=== PATIENT | female | born 1970 | race Caucasian/White ===

== ENCOUNTER → 2018-09-07 16:03 | Outpatient (CLI) | payer OTHER, SELFPAY ==
[2018-09-07 18:40] LABS: Anion Gap 6 (5-15); BUN 14 mg/dL (7-18); BUN/Creat Ratio 17.9 RATIO (10-20); Calcium,Total 8.6 mg/dL (8.5-10.1); Chloride 103 mmol/L (98-107); Creatinine, Serum 0.78 mg/dL (0.55-1.02); EST Glomerular Filtration Rate 84 mL/min (>60); Est Glom Filt Rate - Afr Amer 101 mL/min (>60); Glucose 95 mg/dL (74-106); Potassium 2.7 mmol/L (3.5-5.1); Sodium Level 143 mmol/L (136-145)
== END ==
PROVIDERS: Family Provider Family Medicine; PCP Family Medicine; Visit Provider Family Medicine
DX: Z00.00 Encounter for general adult medical examination without abnormal findings (principal)
CPT/HCPCS: 36415; 80048

== ENCOUNTER → 2018-09-09 15:07 | Outpatient (CLI) | payer OTHER, SELFPAY ==
[2018-09-09 18:30] LABS: Anion Gap 6 (5-15); BUN 19 mg/dL (7-18); BUN/Creat Ratio 22.8 RATIO (10-20); Chloride 102 mmol/L (98-107); Creatinine, Serum 0.84 mg/dL (0.55-1.02); EST Glomerular Filtration Rate 77 mL/min (>60); Est Glom Filt Rate - Afr Amer 94 mL/min (>60); Glucose 79 mg/dL (74-106); Potassium 3.1 mmol/L (3.5-5.1); Sodium Level 141 mmol/L (136-145)
== END ==
PROVIDERS: Family Medicine; Family Provider Family Medicine; PCP Family Medicine; Visit Provider Family Medicine
DX: E87.6 Hypokalemia (principal)
CPT/HCPCS: 36415; 80048

== ENCOUNTER → 2018-10-05 16:38 | Outpatient (CLI) | payer OTHER, SELFPAY ==
[2018-10-05 18:56] LABS: Anion Gap 9 (5-15); BUN 16 mg/dL (7-18); BUN/Creat Ratio 14.5 RATIO (10-20); Calcium,Total 8.9 mg/dL (8.5-10.1); Chloride 102 mmol/L (98-107); EST Glomerular Filtration Rate 56 mL/min (>60); Est Glom Filt Rate - Afr Amer 68 mL/min (>60); Glucose 95 mg/dL (74-106); Sodium Level 143 mmol/L (136-145)
--- OUTSIDE RECORDS SUMMARY | 2018-11-21 23:40 | XMS RPT_ITS ---
:1970 Author Organization [place] Support Name Relationship Address Phone JUAN CARLOS, DEN Unavailable [address] + [place] [address] NORSCH Unavailable [address] + [address] [place] [address] NAGI, BJ Unavailable [address] + [place] [address] JUAN CARLOS, DEN Unavailable [address] + [place] [address] NORSCH Unavailable [address] + [address] [place] [address] NAGI, BJ Unavailable [address] + [place] [address] DANIELEELIZABETH, DEN Unavailable [address] + [place] [address] NORSCH Unavailable [address] + [address] [place] [address] NAGI, BJ Unavailable [address] + [place] [address] JUAN CARLOS, DEN Unavailable [address] + [place] [address] NORSCH Unavailable [address] + [address] [place] [address] NAGI, BJ Unavailable [address] + [place] [address] JUAN CARLOS, DEN Unavailable [address] + [place] [address] NORSCH Unavailable [address] + [address] [place] [address] NAGI, BJ Unavailable [address] + [place] [address] DEN PECK Unavailable [address] + [place] [address] NORSCH Unavailable [address] + [address] [place] [address] BJ LAZAR Unavailable [address] + [place] [address] Care Team Providers Name Role Phone Diogo Heard Attending Unavailable Diogo Heard Primary Care Unavailable Diogo Heard Attending Unavailable Félix, [facility] [place] [facility] Unavailable Diogo Heard Attending Unavailable Félix, [facility] [place] Primary [facility] Unavailable Diogo Heard Attending Unavailable Félix, Diogo Primary Care Unavailable Diogo Heard Attending Unavailable Félix, [facility] Unavailable Kenzie Valentine Attending Unavailable Mariopryor, [facility] Unavailable PROBLEMS PROBLEMS No Problem Records FoundPROCEDURES PROCEDURES No Procedure Records FoundRESULTS RESULTS BASIC METABOLIC Collected: 10/29/2018 Status: F Source: G[place]ZALES PROFILE (BMP) 3:07 PM [facility] REPOSITORY TYPE CODE TESTS RESULT OUT OF RANGE REFERENCE UNITS LAB L501.0100 74-106 mg/dL Normal GLU 83 Result Comment: Please note revised GLUCOSE reference range effective 2017. LAB L501.1000 7-18 mg/dL Normal BUN 10 LAB L501.1100 0.55-1.02 mg/dL Normal CREAT,SERUM 0.76 Result Comment: The validity of the calculated GFR AND GFRAA in patients over 70 years has not been determined. Clinical correlation is essential. LAB L501.1110 >60 mL/min Normal EST GFR 87 Result Comment: Non- GFR Calc LAB L501.1115 >60 mL/min Normal EST GFR - AA 105 Result Comment: GFR Calc LAB L501.1300 10-20 RATIO Normal BUN/CRE 13.2 LAB L501.2200 8.5-10.1 mg/dL CA Normal 9.5 LAB L501.5300 136-145 mmol/L NA Normal 142 LAB L501.5600 3.5-5.1 mmol/L K Normal 3.9 LAB L501.5900 98-107 mmol/L CL Normal 104 LAB L501.6100 21.0-32.0 mmol/L Normal CO2 30.0 LAB L501.6200 5-15 Normal GAP 8 Performed By: #### L500.2500 #### [facility] [address] [place], [place], [address] BASIC METABOLIC Collected: 10/20/2018 Status: F Source: [place] PROFILE ([facility]) 2:17 PM [facility] REPOSITORY TYPE CODE TESTS RESULT OUT OF RANGE REFERENCE UNITS LAB L501.0100 74-106 mg/dL Normal GLU 89 Result Comment: Please note revised GLUCOSE reference range effective 2017. LAB L501.1000 7-18 mg/dL Normal BUN 16 LAB L501.1100 0.55-1.02 mg/dL Normal CREAT,SERUM 0.75 Result Comment: The validity of the calculated GFR AND GFRAA in patients over 70 years has not been determined. Clinical correlation is essential. LAB L501.1110 >60 mL/min Normal EST GFR 88 Result Comment: Non- GFR Calc LAB L501.1115 >60 mL/min Normal EST GFR - AA 106 Result Comment: GFR Calc LAB L501.1300 10-20 RATIO High BUN/CRE 21.3 LAB L501.2200 8.5-10.1 mg/dL CA Normal 9.5 LAB L501.5300 136-145 mmol/L NA Normal 144 LAB L501.5600 3.5-5.1 mmol/L Low K 2.8 LAB L501.5900 98-107 mmol/L CL Normal 102 LAB L501.6100 21.0-32.0 mmol/L High CO2 33.0 LAB L501.6200 5-15 Normal GAP 9 Performed By: #### L500.2500 #### [facility] [address] [place], [place], [address] BASIC METABOLIC Collected: 10/11/2018 Status: F Source: [place] PROFILE ([facility]) 2:55 PM [facility] REPOSITORY TYPE CODE TESTS RESULT OUT OF RANGE REFERENCE UNITS LAB L501.0100 74-106 mg/dL Normal GLU 87 Result Comment: Please note revised GLUCOSE reference range effective 2017. LAB L501.1000 7-18 mg/dL Normal BUN 13 LAB L501.1100 0.55-1.02 mg/dL Normal CREAT,SERUM 0.77 Result Comment: The validity of the calculated GFR AND GFRAA in patients over 70 years has not been determined. Clinical correlation is essential. LAB L501.1110 >60 mL/min Normal EST GFR 85 Result Comment: Non- GFR Calc LAB L501.1115 >60 mL/min Normal EST GFR - AA 103 Result Comment: GFR Calc LAB L501.1300 10-20 RATIO Normal BUN/CRE 16.9 LAB L501.2200 8.5-10.1 mg/dL CA Normal 8.9 LAB L501.5300 136-145 mmol/L NA Normal 140 LAB L501.5600 3.5-5.1 mmol/L Low K 3.3 LAB L501.5900 98-107 mmol/L CL Normal 104 LAB L501.6100 21.0-32.0 mmol/L Normal CO2 30.0 LAB L501.6200 5-15 Normal GAP 6 Performed By: #### L500.2500 #### [facility] [address] [place], [place] [address]n[place]. [place], [address] BASIC METABOLIC Collected: 10/05/2018 Status: F Source: [place] PROFILE (BMP) 4:39 PM [facility] REPOSITORY TYPE CODE TESTS RESULT OUT OF RANGE REFERENCE UNITS LAB L501.0100 74-106 mg/dL Normal GLU 95 Result Comment: Please note revised GLUCOSE reference range effective 2017. LAB L501.1000 7-18 mg/dL Normal BUN 16 LAB L501.1100 0.55-1.02 mg/dL High CREAT,SERUM 1.10 Result Comment: The validity of the calculated GFR AND GFRAA in patients over 70 years has not been determined. Clinical correlation is essential. LAB L501.1110 >60 mL/min Low EST GFR 56 Result Comment: Non- GFR Calc LAB L501.1115 >60 mL/min Normal EST GFR - AA 68 Result Comment: GFR Calc LAB L501.1300 10-20 RATIO Normal BUN/CRE 14.5 LAB L501.2200 8.5-10.1 mg/dL CA Normal 8.9 LAB L501.5300 136-145 mmol/L NA Normal 143 LAB L501.5600 3.5-5.1 mmol/L Low K 3.0 LAB L501.5900 98-107 mmol/L CL Normal 102 LAB L501.6100 21.0-32.0 mmol/L Normal CO2 32.0 LAB L501.6200 5-15 Normal GAP 9 Performed By: #### L500.2500 #### [facility] [address] [place], [place], [address] BASIC METABOLIC Collected: 09/09/2018 Status: F Source: G[place]ZALES PROFILE ([facility]) 3:08 PM [facility] REPOSITORY TYPE CODE TESTS RESULT OUT OF RANGE REFERENCE UNITS LAB L501.0100 74-106 mg/dL Normal GLU 79 Result Comment: Please note revised GLUCOSE reference range effective 2017. LAB L501.1000 7-18 mg/dL High BUN 19 LAB L501.1100 0.55-1.02 mg/dL Normal CREAT,SERUM 0.84 Result Comment: The validity of the calculated GFR AND GFRAA in patients over 70 years has not been determined. Clinical correlation is essential. LAB L501.1110 >60 mL/min Normal EST GFR 77 Result Comment: Non- GFR Calc LAB L501.1115 >60 mL/min Normal EST GFR - AA 94 Result Comment: GFR Calc LAB L501.1300 10-20 RATIO High BUN/CRE 22.8 LAB L501.2200 8.5-10.1 mg/dL CA Normal 9.0 LAB L501.5300 136-145 mmol/L NA Normal 141 LAB L501.5600 3.5-5.1 mmol/L Low K 3.1 LAB L501.5900 98-107 mmol/L CL Normal 102 LAB L501.6100 21.0-32.0 mmol/L High CO2 33.0 LAB L501.6200 5-15 Normal GAP 6 Performed By: #### L500.2500 #### [facility] [address] [place], [place], [address] BASIC METABOLIC Collected: 09/07/2018 Status: F Source: GONZALES PROFILE ([facility]) 4:04 PM [facility] REPOSITORY TYPE CODE TESTS RESULT OUT OF RANGE REFERENCE UNITS LAB L501.0100 74-106 mg/dL Normal GLU 95 Result Comment: Please note revised GLUCOSE reference range effective 2017. LAB L501.1000 7-18 mg/dL Normal BUN 14 LAB L501.1100 0.55-1.02 mg/dL Normal CREAT,SERUM 0.78 Result Comment: The validity of the calculated GFR AND GFRAA in patients over 70 years has not been determined. Clinical correlation is essential. LAB L501.1110 >60 mL/min Normal EST GFR 84 Result Comment: Non- GFR Calc LAB L501.1115 >60 mL/min Normal EST GFR - AA 101 Result Comment: GFR Calc LAB L501.1300 10-20 RATIO Normal BUN/CRE 17.9 LAB L501.2200 8.5-10.1 mg/dL CA Normal 8.6 LAB L501.5300 136-145 mmol/L NA Normal 143 LAB L501.5600 3.5-5.1 mmol/L Low K alert 2.7 Result Comment: Critical Result(s) Called at: 18:41:15 09/07/2018 by: FAN QUINTERO TO DR. INTERIANO LAB L501.5900 98-107 mmol/L Normal CL 103 LAB L501.6100 21.0-32.0 mmol/L High CO2 34.0 LAB L501.6200 5-15 Normal 6 GAP Performed By: #### L500.2500 #### [facility] [address] [place], [place] [address] [place], [place], [address] ALLERGIES ALLERGIES No Allergies Records FoundENCOUNTERS ENCOUNTERS ADMIT/DISCHARGE ACCOUNT ADMITTING ENCOUNTER LOCATION SOURCE NUMBER CLASS 10/29/2018 [id number] [facility] ing:VenueAgentPLAB Repository 10/20/2018 [id number] [facility] [place] [facility] ing:MFPLAB Repository 10/11/2018 [id number] [facility] ing:MFPLAB Repository 10/05/2018 [id number] [facility] ing:MFPLAB Repository 09/09/2018 [id number] Ambulatory [place] 1 [facility] ing:MFPLAB Repository 09/07/2018 [id number] [facility] 2 [facility] ing:MFPLAB Repository PAYERS PAYERS ENCOUNTER GUARANTOR PAYER SUBSCRIBER SOURCE 10/29/2018 Kadeem Primary Bj Peck-[id number] Insurance:MEDICAL WilfongDOB: [address] [place] Number: Repository [id number]: 330 [id number] [phone] (HP) Date:1307-01-11PF [address] [address]AU: 10/29/2018 Secondary NOT GIVENUNK [place] Insurance:SELF PAY [facility] Number: Effective Repository Date:2018-10-29 10/20/2018 Kadeem Primary Bj Peck-Pfbwukr335 Insurance:MEDICAL WilfongDOB: [address] 1953[place] Number: Repository [address]Hpu: 330 [id number] [phone] (HP) Date:4321-88-74ZH [address] [address]HU: 10/20/2018 Secondary NOT GIVENUNK [place] Insurance:SELF PAY [facility] Number: Effective Repository Date:2018-10-20 10/11/2018 Kadeem Primary Bj Peck-Hgfaitj083 Insurance:MEDICAL WilfongDOB: [address] 3847[facility] [place] Number: Repository [address]Bbb: 330 [id number] [phone] (HP) Date:5337-12-15PK [address] [address]SD: 10/11/2018 Secondary NOT GIVENUNK [place] Insurance:SELF PAY [facility] Number: Effective Repository Date:2018-10-11 10/05/2018 Kadeem Primary Bj Peck-[id number] Insurance:MEDICAL WilfongDOB: [address] 2841[facility] [place] Number: Repository [address]Azz: 330 [id number] [phone] (HP) Date:2332-78-95II [address] [address]IS: 10/05/2018 Secondary NOT GIVENUNK [place] Insurance:SELF PAY [facility] Number: Effective Repository Date:2018-10-05 09/09/2018 Kadeem [facility] Bj Peck-Cjisbfc204 Insurance:MEDICAL WilfongDOB: Community [address] [facility] 3189[place]89-[place] Number: Repository [id number]: [phone] [id number] [phone] (HP) Date:3280-97-48ZZ [address] [address]JC: 09/09/2018 Secondary NOT GIVENUNK [place] Insurance:SELF PAY [facility] Number: Effective Repository Date:2018-09-09 09/07/2018 [facility] Bj [address] [place] Danieleelizabeth-[id number] Insurance:MEDICAL WilfongDOB: Community [address] [facility] [id number] Number: Repository [id number]: [phone] [id number] [phone] (HP) Date:3664-06-78LL [address] [address]MN: 09/07/2018 Secondary NOT GIVENUNK [place] Insurance:SELF PAY [facility] Number: Effective Repository Date:2018-09-07
== END ==
PROVIDERS: Family Medicine; Family Provider Family Medicine; PCP Family Medicine; Visit Provider Family Medicine
DX: E87.6 Hypokalemia (principal)
CPT/HCPCS: 36415; 80048

== ENCOUNTER → 2018-10-11 14:53 | Outpatient (CLI) | payer OTHER, SELFPAY ==
[2018-10-11 18:08] LABS: Anion Gap 6 (5-15); BUN 13 mg/dL (7-18); BUN/Creat Ratio 16.9 RATIO (10-20); Calcium,Total 8.9 mg/dL (8.5-10.1); Chloride 104 mmol/L (98-107); Creatinine, Serum 0.77 mg/dL (0.55-1.02); EST Glomerular Filtration Rate 85 mL/min (>60); Est Glom Filt Rate - Afr Amer 103 mL/min (>60); Glucose 87 mg/dL (74-106); Potassium 3.3 mmol/L (3.5-5.1); Sodium Level 140 mmol/L (136-145)
--- OUTSIDE RECORDS SUMMARY | 2019-01-13 07:50 | XMS RPT_ITS ---
:1970 Author Organization [place] Support Name Relationship Address Phone JUAN CARLOS, DEN Unavailable [address] + [place] [address] NORSCH Unavailable [address] + [address] [place] [address] NAGI, BJ Unavailable [address] + [place] [address] JUAN CARLOS, DEN Unavailable [address] + [place] [address] NORSCH Unavailable [address] + [address] [place] [address] NAGI, BJ Unavailable [address] + [place] [address] DANIELEELIZABETH, DEN Unavailable [address] + [place] [address] NORSCH Unavailable [address] + [address] [place] [address] NAGI, BJ Unavailable [address] + [place] [address] JUAN CARLOS, DEN Unavailable [address] + [place] [address] NORSCH Unavailable [address] + [address] [place] [address] NAGI, BJ Unavailable [address] + [place] [address] JUAN CARLOS, DEN Unavailable [address] + [place] [address] NORSCH Unavailable [address] + [address] [place] [address] NAGI, BJ Unavailable [address] + [place] [address] DEN PECK Unavailable [address] + [place] [address] NORSCH Unavailable [address] + [address] [place] [address] BJ LAZAR Unavailable [address] + [place] [address] Care Team Providers Name Role Phone Kenzie Valentine Attending Unavailable Félix, Diogo Primary Care Unavailable Diogo Heard Attending Unavailable Félix, [facility] Unavailable Félix, Diogo Attending Unavailable F[facility]ix, [facility] Unavailable Ranstephen, Christanamaria Attending Unavailable Félix, [facility] Unavailable Ranstephen, Diogo Attending Unavailable Ranpetal, [facility] Unavailable Ranstephen, Christvalerianoer Attending Unavailable Ranpetal, Christopher Primary Care Unavailable PROBLEMS PROBLEMS No Problem Records FoundPROCEDURES PROCEDURES No Procedure Records FoundRESULTS RESULTS BASIC METABOLIC Collected: 10/29/2018 Status: F Source: GONZALES PROFILE (BMP) 3:07 PM [facility] REPOSITORY TYPE CODE TESTS RESULT OUT OF [...] GAP 8 Performed By: #### L500.2500 #### [facility] [address] [place], [place], [address] BASIC METABOLIC Collected: 10/20/2018 Status: F Source: GONZALES PROFILE ([facility]) 2:17 PM [facility] REPOSITORY TYPE CODE TESTS RESULT OUT OF [...] GAP 9 Performed By: #### L500.2500 #### [facility] [address] [place], [place], [address] BASIC METABOLIC Collected: 10/11/2018 Status: F Source: [place] PROFILE ([facility]) 2:55 PM [facility] REPOSITORY TYPE CODE TESTS RESULT OUT OF [...] GAP 6 Performed By: #### L500.2500 #### [facility] [address] [place], [place] [address]nayla. [place], [address] BASIC METABOLIC Collected: 10/05/2018 Status: F Source: [place] PROFILE (BMP) 4:39 PM [facility] REPOSITORY TYPE CODE TESTS RESULT OUT OF [...] GAP 9 Performed By: #### L500.2500 #### [facility] [address], [place], [address] BASIC METABOLIC Collected: 09/09/2018 Status: F Source: GONZALES PROFILE ([facility]) 3:08 PM [facility] REPOSITORY TYPE CODE TESTS RESULT OUT OF [...] GAP 6 Performed By: #### L500.2500 #### [facility] [address] [place], [place], [address] BASIC METABOLIC Collected: 09/07/2018 Status: F Source: GONZALES PROFILE ([facility]) 4:04 PM [facility] REPOSITORY TYPE CODE TESTS RESULT OUT OF [...] 6 GAP Performed By: #### L500.2500 #### [facility] [address] [place], [place] [address]all [place], [place], [address] ALLERGIES ALLERGIES No Allergies Records FoundENCOUNTERS ENCOUNTERS ADMIT/DISCHARGE ACCOUNT ADMITTING ENCOUNTER LOCATION SOURCE NUMBER CLASS 10/29/2018 [id number] [facility] ing:ChideoPLAB Repository 10/20/2018 [id number] [facility] [place] 3 [facility] ing:MFPLAB Repository 10/11/2018 [id number] [facility] ing:MFPLAB Repository 10/05/2018 [id number] [facility] ing:MFPLAB Repository 09/09/2018 [id number] Ambulatory [place] 1 [facility] ing:MFPLAB Repository 09/07/2018 [id number] [facility] 2 [facility] ing:MFPLAB Repository PAYERS PAYERS ENCOUNTER GUARANTOR PAYER SUBSCRIBER SOURCE 10/29/2018 Kadeem Primary Bj Peck-Nwadjfe051 Insurance:MEDICAL WilfongDOB: [address] [place] Number: Repository [address]Kuw: 330 [id number] [phone] (HP) Date:4381-50-63UE [address] [address]JO: 10/29/2018 Secondary NOT GIVENUNK [place] Insurance:SELF PAY [facility] Number: Effective Repository Date:2018-10-29 10/20/2018 Kadeem Primary Bj Peck-Uuhcahg060 Insurance:MEDICAL WilfongDOB: [address] 7539[place]14-39[place] Number: Repository [address]Zmu: 330 [id number] [phone] (HP) Date:0498-47-88ZY [address] [address]SJ: 10/20/2018 Secondary NOT GIVENUNK [place] Insurance:SELF PAY [facility] Number: Effective Repository Date:2018-10-20 10/11/2018 Kadeem Primary Bj Peck-Jboroil223 Insurance:MEDICAL WilfongDOB: [address] 0056-00-61[facility] [place] Number: Repository [id number]: 330 [id number] [phone] (HP) Date:4933-93-92WX [address] [address]XG: 10/11/2018 Secondary NOT GIVENUNK [place] Insurance:SELF PAY [facility] Number: Effective Repository Date:2018-10-11 10/05/2018 Kadeem Primary Bj Peck-Oqrlgvn570 Insurance:MEDICAL WilfongDOB: [address] 0544-55-15[facility] [place] Number: Repository [address]Cfq: 330 [id number] [phone] (HP) Date:9378-02-88ZW [address] [address]UA: 10/05/2018 Secondary NOT GIVENUNK [place] Insurance:SELF PAY [facility] Number: Effective Repository Date:2018-10-05 09/09/2018 Kadeem [facility] Bj Peck-Sbfmhrm697 Insurance:MEDICAL WilfongDOB: Community [address] [facility] 3511-[place] Number: Repository [address]Zgi: ([phone]) [id number] [phone] (HP) Date:9759-72-55XY [address] [address]RP: 09/09/2018 Secondary NOT GIVENUNK [place] Insurance:SELF PAY [facility] Number: Effective Repository Date:2018-09-09 09/07/2018 [facility] Bj Stov[address] Gonzales Danieleelziabeth-Bccfoce226 Insurance:MEDICAL WilfongDOB: Community [address] [facility] 8062-57-[place] Number: Repository [id number]: ([phone]) [id number] [phone] (HP) Date:3394-12-88TN [address] [address]CU: 09/07/2018 Secondary NOT GIVENUNK [place] Insurance:SELF PAY [facility] Number: Effective Repository Date:2018-09-07
== END ==
PROVIDERS: Family Provider Family Medicine; PCP Family Medicine; Visit Provider Family Medicine
DX: E87.6 Hypokalemia (principal)
CPT/HCPCS: 36415; 80048

== ENCOUNTER → 2018-10-20 14:16 | Outpatient (CLI) | payer OTHER, SELFPAY ==
[2018-10-20 15:57] LABS: Anion Gap 9 (5-15); BUN 16 mg/dL (7-18); BUN/Creat Ratio 21.3 RATIO (10-20); Calcium,Total 9.5 mg/dL (8.5-10.1); Chloride 102 mmol/L (98-107); Creatinine, Serum 0.75 mg/dL (0.55-1.02); EST Glomerular Filtration Rate 88 mL/min (>60); Est Glom Filt Rate - Afr Amer 106 mL/min (>60); Glucose 89 mg/dL (74-106); Potassium 2.8 mmol/L (3.5-5.1); Sodium Level 144 mmol/L (136-145)
== END ==
PROVIDERS: Family Provider Family Medicine; PCP Family Medicine; Visit Provider Family Medicine
DX: E87.6 Hypokalemia (principal)
CPT/HCPCS: 36415; 80048

== ENCOUNTER → 2018-10-29 15:07 | Outpatient (CLI) | payer OTHER, SELFPAY ==
[2018-10-29 18:13] LABS: Anion Gap 8 (5-15); BUN 10 mg/dL (7-18); BUN/Creat Ratio 13.2 RATIO (10-20); Calcium,Total 9.5 mg/dL (8.5-10.1); Chloride 104 mmol/L (98-107); Creatinine, Serum 0.76 mg/dL (0.55-1.02); EST Glomerular Filtration Rate 87 mL/min (>60); Est Glom Filt Rate - Afr Amer 105 mL/min (>60); Glucose 83 mg/dL (74-106); Potassium 3.9 mmol/L (3.5-5.1); Sodium Level 142 mmol/L (136-145)
== END ==
PROVIDERS: Family Provider Family Medicine; PCP Family Medicine; Visit Provider Family Medicine
DX: E87.6 Hypokalemia (principal)
CPT/HCPCS: 36415; 80048

== ENCOUNTER → 2019-04-13 | Outpatient (CLI) | payer OTHER, SELFPAY ==
[2019-04-13 16:01] LABS: Anion Gap 10 (5-15); BUN 14 mg/dL (7-18); BUN/Creat Ratio 15.9 RATIO (10-20); Calcium,Total 9.1 mg/dL (8.5-10.1); Chloride 102 mmol/L (98-107); Creatinine, Serum 0.88 mg/dL (0.55-1.02); EST Glomerular Filtration Rate 73 mL/min (>60); Est Glom Filt Rate - Afr Amer 88 mL/min (>60); Glucose 84 mg/dL (74-106); Potassium 3.1 mmol/L (3.5-5.1); Sodium Level 144 mmol/L (136-145)
== END | disposition home or self-care (01) ==
LOC: MFPLAB 13:51
PROVIDERS: Family Provider Family Medicine; PCP Family Medicine; Referring Provider Family Medicine; Visit Provider Family Medicine
DX: E87.6 Hypokalemia (principal)
CPT/HCPCS: 36415; 80048

== ENCOUNTER → 2019-05-19 11:45 | Outpatient (CLI) | payer OTHER, SELFPAY ==
[2019-05-19 14:38] LABS: Anion Gap 6 (5-15); BUN 10 mg/dL (7-18); BUN/Creat Ratio 12.9 RATIO (10-20); Chloride 105 mmol/L (98-107); Creatinine, Serum 0.77 mg/dL (0.55-1.02); EST Glomerular Filtration Rate 84 mL/min (>60); Est Glom Filt Rate - Afr Amer 102 mL/min (>60); Glucose 73 mg/dL (74-106); Potassium 3.6 mmol/L (3.5-5.1); Sodium Level 142 mmol/L (136-145)
== END ==
PROVIDERS: Family Provider Family Medicine; PCP Family Medicine; Referring Provider Family Medicine; Visit Provider Family Medicine
DX: E87.6 Hypokalemia (principal)
CPT/HCPCS: 36415; 80048

== ENCOUNTER → 2022-09-15 | Outpatient (CLI) | payer OTHER, SELFPAY ==
[2022-09-15 17:45] LABS: Hematocrit 39.3 % (37-47); Mean Corp Hgb Conc 33.1 g/dL (32-36); Mean Corpuscular Hgb 30.6 pg (27.0-32.0); Mean Corpuscular Volume 92.5 fL (81-99); Mean Platelet Vol. 10.3 fl (6.2-12.0); Platelet Count 243 K/mm3 (150-450); RBC Distribution Width CV 12.4 % (11.6-14.6); RBC Distribution Width SD 41.9 fl (35.1-43.9); Red Blood Count 4.25 M/mm3 (4.2-5.4); White Blood Count 7.7 K/mm3 (4.4-11.0)
[2022-09-15 18:29] LABS: Vitamin B12 537 pg/mL (211-911); Vitamin D,25 Hydroxy 27.8 ng/mL
[2022-09-15 18:39] LABS: ALB/GLOB Ratio 1.4 RATIO (0.9-2.4); AST(SGOT) 14 U/L (15-37); Alanine Aminotransfer ALT/SGPT 27 U/L (13-56); Albumin, Serum 4.2 g/dL (3.2-5.0); Alkaline Phosphatase 92 U/L (45-117); Anion Gap 8 (5-15); BUN 15 mg/dL (7-18); BUN/Creat Ratio 15.7 RATIO (10-20); Calcium,Total 9.2 mg/dL (8.5-10.1); Chloride 100 mmol/L (98-107); Creatinine, Serum 0.96 mg/dL (0.55-1.02); EST Glomerular Filtration Rate 65 mL/min (>60); Est Glom Filt Rate - Afr Amer 79 mL/min (>60); Globulin 2.9 g/dL (2.2-4.2); Glucose 92 mg/dL (74-106); Potassium 2.9 mmol/L (3.5-5.1); Protein, Total 7.1 g/dL (6.4-8.2); Sodium Level 141 mmol/L (136-145)
== END | disposition home or self-care (01) ==
PROVIDERS: PCP Family Medicine; Visit Provider Nurse Practitioner Family
DX: R42 Dizziness and giddiness (principal)
CPT/HCPCS: 36415; 80053; 82306; 82607; 85027

== ENCOUNTER → 2022-09-26 | Outpatient (CLI) | payer OTHER, SELFPAY ==
[2022-09-26 18:21] LABS: ALB/GLOB Ratio 1.6 RATIO (0.9-2.4); AST(SGOT) 15 U/L (15-37); Alanine Aminotransfer ALT/SGPT 24 U/L (13-56); Albumin, Serum 4.1 g/dL (3.2-5.0); Alkaline Phosphatase 85 U/L (45-117); Anion Gap 5 (5-15); BUN 16 mg/dL (7-18); BUN/Creat Ratio 17.8 RATIO (10-20); Calcium,Total 9.1 mg/dL (8.5-10.1); Chloride 103 mmol/L (98-107); EST Glomerular Filtration Rate 70 mL/min (>60); Est Glom Filt Rate - Afr Amer 85 mL/min (>60); Globulin 2.6 g/dL (2.2-4.2); Glucose 88 mg/dL (74-106); Protein, Total 6.7 g/dL (6.4-8.2); Sodium Level 142 mmol/L (136-145)
== END | disposition home or self-care (01) ==
LOC: MFPLAB 14:29
PROVIDERS: Nurse Practitioner Family; PCP Family Medicine; Referring Provider Family Medicine; Visit Provider Family Medicine
DX: E87.6 Hypokalemia (principal)
CPT/HCPCS: 36415; 80053

== ENCOUNTER → 2022-11-11 | Outpatient (CLI) | payer OTHER, SELFPAY ==
[2022-11-11 18:50] LABS: Potassium 2.9 mmol/L (3.5-5.1)
== END | disposition home or self-care (01) ==
LOC: MFPLAB 15:14
PROVIDERS: PCP Family Medicine; Visit Provider Family Medicine
DX: Z00.00 Encounter for general adult medical examination without abnormal findings (principal); E87.6 Hypokalemia
CPT/HCPCS: 36415; 84132

== ENCOUNTER → 2022-11-18 | Outpatient (CLI) | payer OTHER, SELFPAY ==
[2022-11-18 18:37] LABS: Potassium 2.8 mmol/L (3.5-5.1)
== END | disposition home or self-care (01) ==
LOC: MFPLAB 14:28
PROVIDERS: PCP Family Medicine; Referring Provider Family Medicine; Visit Provider Family Medicine
DX: I10 Essential (primary) hypertension (principal)
CPT/HCPCS: 36415; 84132

== ENCOUNTER → 2022-12-01 | Outpatient (CLI) | payer OTHER, SELFPAY ==
[2022-12-01 18:09] LABS: Potassium 3.1 mmol/L (3.5-5.1)
== END | disposition home or self-care (01) ==
PROVIDERS: PCP Family Medicine; Visit Provider Family Medicine
DX: E87.6 Hypokalemia (principal)
CPT/HCPCS: 36415; 84132

== ENCOUNTER → 2023-03-30 | Outpatient (CLI) | payer OTHER, SELFPAY ==
--- NOTE | 2023-03-30 11:53 | BI_ITS ---
MAMMOGRAPHY - BILATERAL SCREENING REASON FOR EXAM: Female, 52 years old. Routine annual screening examination. PERTINENT HISTORY: Non-contributory. TECHNIQUE: Digital bilateral breast norm (3D mammographic acquisition) in the CC and MLO projections. 2-D mediolateral oblique (MLO) and craniocaudad (CC) views of both breasts were obtained. CAD: Full Field Digital Mammography with Computer Added Detection was performed. COMPARISON: None. Baseline examination. FINDINGS: Breast Composition: The breasts are heterogeneously dense, which may obscure small masses. There are no dominant masses or suspicious calcifications. No other significant abnormalities are identified. BI/SCRN MAMM (CAD)W/NORM BILAT IMPRESSION: Negative screening mammogram. Yearly followup mammogram recommended. (A) ASSESSMENT CATEGORY: BIRADS Category 1: Negative. A letter regarding these results will be sent to the patient by the facility within 30 days. Approximately 10% of breast cancers are not detected by mammography. A normal mammogram should not delay biopsy of a clinically suspicious abnormality. [id number] Electronically Signed: Jm Irvin MD at 12:44 EDT ,
[2023-04-03 17:07] LABS: HPV APTIMA, High Risk Negative (Negative)
[2023-04-04 11:27] LABS: HPV Reflexed? YES, CHARGE PATIENT
== END | disposition home or self-care (01) ==
PROVIDERS: PCP Family Medicine; Referring Provider Family Medicine; Visit Provider Family Medicine
DX: Z01.419 Encounter for gynecological examination (general) (routine) without abnormal findings (principal); Z12.31 Encounter for screening mammogram for malignant neoplasm of breast
CPT/HCPCS: 77063; 77067; 87624; 88175; G0145

== ENCOUNTER → 2023-11-16 | Outpatient (CLI) | payer OTHER, SELFPAY ==
--- OUTSIDE RECORDS SUMMARY | 2023-11-16 16:18 | XMS RPT_ITS ---
Author Name Auto Generated Organization [facility] PROB[facility] No Problem Records Found PROCEDURES No Procedure Records Found RESULTS PROGRESS Observed: 03/13/2023 5:14 PM Status: COMPLETED Source: [facility] REPOSITORY HNO ID: [id number] Author: Annabella Tariq APRN.WINDERMAN Service: ? Author Type: Nurse Practitioner Type: Progress Notes Filed: 03/13/2023 5:24 PM Note Text: Subjective HPI Kadeem Reid is a 52 year old female who presents with a tick bite on the back of her leg. She pulled the tick off last night and it was fully engorged. She saved the tick. It appears to be a dog tick. She has not had a fever or a rash. She did have a headache this morning but it has resolved. She has not used any medication for this at home. Review of Systems Constitutional: Negative for chills and fever. Respiratory: Negative. Cardiovascular: Negative. Musculoskeletal: Negative for joint pain and myalgias. Skin: Negative for itching and rash. BP 136/82 Pulse 86 Temp 37.1 ?C (98.7 ?F) Resp 18 Wt 69.6 kg (153 lb 6.4 oz) LMP 07/26/2006 SpO2 99% PAST MEDICAL HISTORY Diagnosis Date Irregular menstrual cycle Pain in joint, pelvic region and thigh Postcoital bleeding PAST SURGICAL HISTORY Procedure Laterality Date CATH AND SALINE/CONTRAST SONOHYSTER/HYSTEROSALPI 05/12/02 LIG/TRNSXJ FLP TUBE ABDL/VAG APPR UNI/BI Tubal ligation TONSILLECTOMY PRIMARY/SECONDARY <AGE 12 ALLERGIES Erythromycin, Penicillins, and Sulfa (Sulfonamide Antibiotics) MEDICATIONS lisinopril (ZESTRIL) 20 mg tablet Take 20 mg by mouth once daily. amLODIPine (NORVASC) 5 mg tablet Take 5 mg by mouth once daily. potassium chloride 20 mEq TbER doxycycline hyclate (VIBRAMYCIN) 100 mg capsule Take 2 capsules by mouth one time only for 1 dose. FAMILY HISTORY Problem Relation Age of Onset Prostate Cancer Paternal Grandfather Diabetes Paternal Grandmother Social History Tobacco Use Smoking status: Never Smokeless tobacco: Never Substance Use Topics Alcohol use: No Drug use: No Objective Physical Exam Vitals and nursing note reviewed. Constitutional: Appearance: Normal appearance. Cardiovascular: Rate and Rhythm: Normal rate. Pulmonary: Effort: Pulmonary effort is normal. Skin: General: Skin is warm and dry. Findings: Erythema present. No rash. Neurological: Mental Status: She is alert. ASSESSMENT/PLAN: 1. Tick bite of knee, unspecified laterality, initial encounter - ICD9: 916.4, E906.4, ICD10: S80.269A, W57.XXXA - DOXYCYCLINE HYCLATE 100 MG CAPSULE - apply triple antibiotic ointment to site twice daily. - Follow-up with your PCP in 3-5 days if symptoms have not improved or sooner if symptoms worsen - Discussed red flags and need for immediate medical evaluation if any occur. - Discussed supportive care treatment with fluids, rest and analgesia. - Discussed expected course of illness Annabella Tariq APRN.CNP CNOV Observed: 03/13/2023 5:00 PM Status: COMPLETED Source: [facility] REPOSITORY Office Visit (WSTR) KADEEM LEAL ([id number]) 1970 F Date Time Provider Department 03/13/23 5:00 PM ANNABELLA TARIQ OMAR During your visit today, we recorded the following information about you: Temperature Pulse Respiration Blood pressure 98.7 degrees 86/minute 18/minute 136/82 Weight 69.6 kg Annabella Tariq APRN.CNP 03/13/2023 5:13 PM Signed ASSESSMENT/PLAN: 1. Tick bite of knee, unspecified laterality, initial encounter - ICD9: 916.4, E906.4, ICD10: S80.269A, W57.XXXA - DOXYCYCLINE HYCLATE 100 MG CAPSULE - apply triple antibiotic ointment to site twice daily. - Follow-up with your PCP in 3-5 days if symptoms have not improved or sooner if symptoms worsen - Discussed red flags and need for immediate medical evaluation if any occur. - Discussed supportive care treatment with fluids, rest and analgesia. - Discussed expected course of illness Annabella Tariq APRN.TIERRA Avoiding Tick Bites How can I avoid tick bites? If you are planning an outdoor activity, especially those in a heavily wooded area, it is important to follow a few simple precautions to protect yourself from tick bites. Wear long sleeved, light-colored clothing, with tightly woven fabric. This gives ticks less area to target and allows you to see ticks on your clothing. When traveling through the [place] or grassy sun, stay near the center of the trails. At home, make sure that you keep your lawn mowed and bushes and trees trimmed as short as possible. If you choose to apply tick repellents, such as those containing DEET, try to avoid spraying them directly to your bare skin. (high concentrations of DEET may have harmful effects on the nervous system.) Apply the spray to your clothing, socks, shoes, tents and backpacks. When returning from the outdoors, check for ticks. Be especially observant of hair, body folds, ears, underarms and the back. Check your clothes and gear for ticks and wash these items immediately. What if I have been bitten by a tick? If you discover a tick, remove it immediately. The longer the tick feeds, the greater chance that it can transmit its bacteria to you. The easiest removal method is to use a pair of tweezers, grasp the tick as close to your skin as possible, and gently pull the tick off. Then, thoroughly wash your hands and the bite area with rubbing alcohol to prevent transmission to other areas of your body. When should I call the doctor? It is best to wait and see whether you develop any signs or symptoms. If a large red lani forms around the tick bite or if you develop fever, flu-like symptoms, rash, or more severe illness, contact your doctor right away. Your doctor can determine whether these symptoms might be caused by a tick-borne disease, and whether antibiotics will be needed. Is there a vaccine for preventing tick-borne disease in humans? Currently there are vaccines being tested, but there are no guarantees that they will be effective. The best option is to take precautions so that tick bites do not occur in the first place. Early Signs and Symptoms (3 to 30 days after tick bite) Fever, chills, headache, fatigue, muscle and joint aches, and swollen lymph nodes Erythema migrans (EM) rash: Occurs in approximately 70 to 80 percent of infected persons Begins at the site of a tick bite after a delay of 3 to 30 days (average is about 7 days) Expands gradually over a period of days reaching up to 12 inches or more (30 cm) across May feel warm to the touch but is rarely itchy or painful Sometimes clears as it enlarges, resulting in a target or ?bull's-eye? appearance May appear on any area of the body Later Signs and Symptoms (days to months after tick bite) Severe headaches and neck stiffness Additional EM rashes on other areas of the body Arthritis with severe joint pain and swelling, particularly the knees and other large joints. Facial or Akers's palsy (loss of muscle tone or droop on one or both sides of the face) Intermittent pain in tendons, muscles, joints, and bones Heart palpitations or an irregular heart beat (Lyme carditis) Episodes of dizziness or shortness of breath Inflammation of the brain and spinal cord Nerve pain Shooting pains, numbness, or tingling in the hands or feet Problems with short-term memory Annabella Tariq APRN.[facility] 03/13/2023 5:24 PM Signed Subjective HPI Kadeem Reid is a 52 year old female who presents with a tick bite on the back of her leg. She pulled the tick off last night and it was fully engorged. She saved the tick. It appears to be a dog tick. She has not had a fever or a rash. She did have a headache this morning but it has resolved. She has not used any medication for this at home. Review of Systems Constitutional: Negative for chills and fever. Respiratory: Negative. Cardiovascular: Negative. Musculoskeletal: Negative for joint pain and myalgias. Skin: Negative for itching and rash. BP 136/82 Pulse 86 Temp 37.1 ?C (98.7 ?F) Resp 18 Wt 69.6 kg (153 lb 6.4 oz) LMP 07/26/2006 SpO2 99% PAST MEDICAL HISTORY Diagnosis Date Irregular menstrual cycle Pain in joint, pelvic region and thigh Postcoital bleeding PAST SURGICAL HISTORY Procedure Laterality Date CATH AND SALINE/CONTRAST SONOHYSTER/HYSTEROSALPI 05/12/02 LIG/TRNSXJ FLP TUBE ABDL/VAG APPR UNI/BI Tubal ligation TONSILLECTOMY PRIMARY/SECONDARY <AGE 12 ALLERGIES Erythromycin, Penicillins, and Sulfa (Sulfonamide Antibiotics) MEDICATIONS lisinopril (ZESTRIL) 20 mg tablet Take 20 mg by mouth once daily. amLODIPine (NORVASC) 5 mg tablet Take 5 mg by mouth once daily. potassium chloride 20 mEq TbER doxycycline hyclate (VIBRAMYCIN) 100 mg capsule Take 2 capsules by mouth one time only for 1 dose. FAMILY HISTORY Problem Relation Age of Onset Prostate Cancer Paternal Grandfather Diabetes Paternal Grandmother Social History Tobacco Use Smoking status: Never Smokeless tobacco: Never Substance Use Topics Alcohol use: No Drug use: No Objective Physical Exam Vitals and nursing note reviewed. Constitutional: Appearance: Normal appearance. Cardiovascular: Rate and Rhythm: Normal rate. Pulmonary: Effort: Pulmonary effort is normal. Skin: General: Skin is warm and dry. Findings: Erythema present. No rash. Neurological: Mental Status: She is alert. ASSESSMENT/PLAN: 1. Tick bite of knee, unspecified laterality, initial encounter - ICD9: 916.4, E906.4, ICD10: S80.269A, W57.XXXA - DOXYCYCLINE HYCLATE 100 MG CAPSULE - apply triple antibiotic ointment to site twice daily. - Follow-up with your PCP in 3-5 days if symptoms have not improved or sooner if symptoms worsen - Discussed red flags and need for immediate medical evaluation if any occur. - Discussed supportive care treatment with fluids, rest and analgesia. - Discussed expected course of illness Annabella Tariq APRN.WINDERMAN Referring Provider: SELF [200] Allergies As of Date: 03/13/2023 Noted Allergy Reaction ERYTHROMYCIN 08/06/2006 4 - Hives PENICILLINS 08/06/2006 4 - Hives SULFA (SULFONAMIDE ANTIBIOTICS) 08/06/2006 4 - Hives Date Reviewed: 03/13/2023 Reviewed by: Amy Jorge MA - Fully Assessed Reason for Visit: Insect Bite [929] Cmt: Tick bite back of L thigh x1 day Primary Visit Diagnosis:Tick bite of knee, unspecified laterality, initial encounter [S80.269A, W57.XXXA] Order(s):doxycycline hyclate (VIBRAMYCIN) 100 mg capsuleTake 2 capsules by mouth one time only for 1 dose.Disp: 2 capsuleRfl: 0 Prescriptions as of 03/13/2023 - lisinopril (ZESTRIL) 20 mg tablet Take 20 mg by mouth once daily. - amLODIPine (NORVASC) 5 mg tablet Take 5 mg by mouth once daily. - potassium chloride 20 mEq TbER - doxycycline hyclate (VIBRAMYCIN) 100 mg capsule Take 2 capsules by mouth one time only for 1 dose. Problem List As Of Date: 03/13/2023 (None) Other instructions from your clinician: ASSESSMENT/PLAN: 1. Tick bite of knee, unspecified laterality, initial encounter - ICD9: 916.4, E906.4, ICD10: S80.269A, W57.XXXA - DOXYCYCLINE HYCLATE 100 MG CAPSULE - apply triple antibiotic ointment to site twice daily. - Follow-up with your PCP in 3-5 days if symptoms have not improved or sooner if symptoms worsen - Discussed red flags and need for immediate medical evaluation if any occur. - Discussed supportive care treatment with fluids, rest and analgesia. - Discussed expected course of illness Annabella Aguirre-RADHA Matt.WINDERMAN Avoiding Tick Bites How can I avoid tick bites? If you are planning an outdoor activity, especially those in a heavily wooded area, it is important to follow a few simple precautions to protect yourself from tick bites. Wear long sleeved, light-colored clothing, with tightly woven fabric. This gives ticks less area to target and allows you to see ticks on your clothing. When traveling through the [place] or grassy sun, stay near the center of the trails. At home, make sure that you keep your lawn mowed and bushes and trees trimmed as short as possible. If you choose to apply tick repellents, such as those containing DEET, try to avoid spraying them directly to your bare skin. (high concentrations of DEET may have harmful effects on the nervous system.) Apply the spray to your clothing, socks, shoes, tents and backpacks. When returning from the outdoors, check for ticks. Be especially observant of hair, body folds, ears, underarms and the back. Check your clothes and gear for ticks and wash these items immediately. What if I have been bitten by a tick? If you discover a tick, remove it immediately. The longer the tick feeds, the greater chance that it can transmit its bacteria to you. The easiest removal method is to use a pair of tweezers, grasp the tick as close to your skin as possible, and gently pull the tick off. Then, thoroughly wash your hands and the bite area with rubbing alcohol to prevent transmission to other areas of your body. When should I call the doctor? It is best to wait and see whether you develop any signs or symptoms. If a large red lani forms around the tick bite or if you develop fever, flu-like symptoms, rash, or more severe illness, contact your doctor right away. Your doctor can determine whether these symptoms might be caused by a tick-borne disease, and whether antibiotics will be needed. Is there a vaccine for preventing tick-borne disease in humans? Currently there are vaccines being tested, but there are no guarantees that they will be effective. The best option is to take precautions so that tick bites do not occur in the first place. Early Signs and Symptoms (3 to 30 days after tick bite) Fever, chills, headache, fatigue, muscle and joint aches, and swollen lymph nodes Erythema migrans (EM) rash: Occurs in approximately 70 to 80 percent of infected persons Begins at the site of a tick bite after a delay of 3 to 30 days (average is about 7 days) Expands gradually over a period of days reaching up to 12 inches or more (30 cm) across May feel warm to the touch but is rarely itchy or painful Sometimes clears as it enlarges, resulting in a target or ?bull's-eye? appearance May appear on any area of the body Later Signs and Symptoms (days to months after tick bite) Severe headaches and neck stiffness Additional EM rashes on other areas of the body Arthritis with severe joint pain and swelling, particularly the knees and other large joints. Facial or Akers's palsy (loss of muscle tone or droop on one or both sides of the face) Intermittent pain in tendons, muscles, joints, and bones Heart palpitations or an irregular heart beat (Lyme carditis) Episodes of dizziness or shortness of breath Inflammation of the brain and spinal cord Nerve pain Shooting pains, numbness, or tingling in the hands or feet Problems with short-term memory Prescriptions ordered this encounter Disp Refills Start End DOXYCYCLINE HYCLATE 100 MG CAPSULE 2 ca* 0 03/13/2023 03/13/2023 Route: ORAL Sig: Take 2 capsules by mouth one time only for 1 dose. Disposition: Return if symptoms worsen or fail to improve. Follow-up and Disposition History for Encounter Date Provider Department Center 03/13/2023 [id number], KA*UCWSTR [facility] Encounter Status:Closed by ANNABELLA TARIQ on 03/13/23 ALLERGIES DATE TYPE / CODE NAME / CODE REACTION SEVERITY SOURCE 08/06/2006 DRUG/[id number]( SNOMED CT) ERYTHROMYCIN [facility] 08/06/2006 Drug Class/153541374 (SNOMED CT) PENICILLINS [facility] 08/06/2006 Drug Class/189940241 (SNOMED CT) SULFA (SULFONAMIDE ANTIBIOTICS) [facility] ENCOUNTERS ADMIT/DISCHARGE ACCOUNT NUMBER ADMITTING ENCOUNTER CLASS LOC ATION SOURCE 03/13/2023/ 3 [id number] [facility] PAYERS ENCOUNTER GUARANTOR PAYER SUBSCRIBER SOURCE 03/13/2023 Primary Insuranc e:O SUPERMED PPOPolicy Number: [id number] Date:[id number] Name:Keyona MONDRAGONFOFRANCKDOB: [id number] [address]
[2023-11-16 18:27] LABS: Anion Gap 5 (5-15); BUN 11 mg/dL (7-18); BUN/Creat Ratio 11.7 RATIO (10-20); Calcium,Total 9.4 mg/dL (8.5-10.1); Chloride 102 mmol/L (98-107); Creatinine, Serum 0.94 mg/dL (0.55-1.02); EST Glomerular Filtration Rate 66 mL/min (>60); Est Glom Filt Rate - Afr Amer 80 mL/min (>60); Glucose 112 mg/dL (74-106); Potassium 2.3 mmol/L (3.5-5.1); Sodium Level 141 mmol/L (136-145)
== END | disposition home or self-care (01) ==
LOC: MFPLAB 15:48
PROVIDERS: PCP Family Medicine; Visit Provider Family Medicine
DX: I10 Essential (primary) hypertension (principal)
CPT/HCPCS: 36415; 80048

== ENCOUNTER → 2023-11-17 | Outpatient (CLI) | payer OTHER, SELFPAY ==
--- OUTSIDE RECORDS SUMMARY | 2023-11-17 14:31 | XMS RPT_ITS ---
Author Name Auto Generated Organization [facility] PROBLEMS No Problem Records Found PROCEDURES No Procedure Records Found RESULTS PROGRESS Observed: 03/13/2023 5:14 PM Status: COMPLETED Source: [facility] REPOSITORY HNO ID: [id number] Author: Annabella Tariq APRN.GROUP SALES REPRESENTATIVE Service: ? Author Type: Nurse Practitioner Type: [...] Observed: 03/13/2023 5:00 PM Status: COMPLETED Source: [facility] REPOSITORY Office Visit (WSTR) KADEEM LEAL ([id number]) 1970 F Date Time Provider Department 03/13/23 [...] feet Problems with short-term memory Annabella Tariq APRN.[facility] 03/13/2023 5:24 PM Signed Subjective HPI [...] Discussed expected course of illness Annabella Tariq APRN.GROUP SALES REPRESENTATIVE Referring Provider: SELF [200] Allergies As of [...] Discussed expected course of illness Annabella Aguirre-RADHA Matt.GROUP SALES REPRESENTATIVE Avoiding Tick Bites How can I avoid [...] for Encounter Date Provider Department Center 03/13/2023 [id number], KA*[facility] Encounter Status:Closed by ANNABELLA TARIQ on 03/13/23 ALLERGIES DATE TYPE / CODE NAME / CODE REACTION SEVERITY SOURCE 08/06/2006 DRUG/[id number]( SNOMED CT) ERYTHROMYCIN [facility] 08/06/2006 Drug Class/211857127 (SNOMED CT) PENICILLINS [facility] 08/06/2006 Drug Class/048054100 (SNOMED CT) SULFA (SULFONAMIDE ANTIBIOTICS) [facility] ENCOUNTERS ADMIT/DISCHARGE ACCOUNT NUMBER ADMITTING ENCOUNTER CLASS LOC ATION SOURCE 03/13/2023/ 3 [id number] [facility] [place] [facility]ERS ENCOUNTER GUARANTOR PAYER SUBSCRIBER SOURCE 03/13/2023 Primary Insuranc e:O SUPERMED PPOPolicy Number: [id number] Date:5351-09-89Zupt Name:Keyona MONDRAGONFOFRANCKDOB: [id number] [address]
[2023-11-17 16:01] LABS: Urine Sodium 63 mmol/L (Not Establ.)
[2023-11-17 16:45] LABS: Potassium 2.7 mmol/L (3.5-5.1)
[2023-11-17 17:06] LABS: Osmolality, Serum 297 mOsm/KG (275-295)
[2023-11-17 17:07] LABS: Osmolality, Urine 330 mOsm/KG
== END | disposition home or self-care (01) ==
LOC: MTLAB 14:09
PROVIDERS: PCP Family Medicine; Referring Provider Family Medicine; Visit Provider Family Medicine
DX: E87.6 Hypokalemia (principal)
CPT/HCPCS: 36415; 83930; 83935; 84132; 84133; 84300

== ENCOUNTER → 2023-11-24 | Outpatient (CLI) | payer OTHER, SELFPAY ==
--- OUTSIDE RECORDS SUMMARY | 2023-11-24 16:21 | XMS RPT_ITS ---
Author Name Auto Generated Organization [facility]IP PROBLEMS No Problem Records Found PROCEDURES No Procedure Records Found RESULTS PROGRESS Observed: 03/13/2023 5:14 PM Status: COMPLETED Source: [facility] REPOSITORY HNO ID: [id number] Author: Annabella Tariq APRN.MERIT SYSTEM DIRECTOR Service: ? Author Type: Nurse Practitioner Type: [...] Observed: 03/13/2023 5:00 PM Status: COMPLETED Source: [facility] REPOSITORY Office Visit (WSTR) KADEEM LEAL ([id number]) 1970 F Date Time Provider Department 03/13/23 [...] feet Problems with short-term memory Annabella Tariq APRN.[facility] 03/13/2023 5:24 PM Signed Subjective HPI [...] Discussed expected course of illness Annabella Tariq APRN.MERIT SYSTEM DIRECTOR Referring Provider: SELF [200] Allergies As of [...] Discussed expected course of illness Annabella Aguirre-RADHA Matt.MERIT SYSTEM DIRECTOR Avoiding Tick Bites How can I avoid [...] for Encounter Date Provider Department Center 03/13/2023 [id number], KA*[facility]WSTR [facility] Encounter Status:Closed by ANNABELLA TARIQ on 03/13/23 ALLERGIES DATE TYPE / CODE NAME / CODE REACTION SEVERITY SOURCE 08/06/2006 DRUG/088614750( SNOMED CT) ERYTHROMYCIN [facility] 08/06/2006 Drug Class/224345566 (SNOMED CT) PENICILLINS [facility] 08/06/2006 Drug Class/635256882 (SNOMED CT) SULFA (SULFONAMIDE ANTIBIOTICS) [facility] ENCOUNTERS ADMIT/DISCHARGE ACCOUNT NUMBER ADMITTING ENCOUNTER CLASS LOC ATION SOURCE 03/13/2023/ 3 [id number] [facility] PAYERS ENCOUNTER GUARANTOR PAYER SUBSCRIBER SOURCE 03/13/2023 Primary Insuranc e:O SUPERMED PPOPolicy Number: [id number] Date:[id number] Name:Keyona MONDRAGONFOFRANCKDOB: [id number] [address]
[2023-11-24 18:21] LABS: Anion Gap 5 (5-15); BUN 15 mg/dL (7-18); BUN/Creat Ratio 15.6 RATIO (10-20); Calcium,Total 9.1 mg/dL (8.5-10.1); Chloride 107 mmol/L (98-107); Creatinine, Serum 0.96 mg/dL (0.55-1.02); EST Glomerular Filtration Rate 65 mL/min (>60); Est Glom Filt Rate - Afr Amer 78 mL/min (>60); Glucose 94 mg/dL (74-106); Potassium 2.9 mmol/L (3.5-5.1); Sodium Level 140 mmol/L (136-145)
== END | disposition home or self-care (01) ==
LOC: MTLAB 16:02
PROVIDERS: PCP Family Medicine; Referring Provider Family Medicine; Visit Provider Family Medicine
DX: E87.6 Hypokalemia (principal)
CPT/HCPCS: 36415; 80048

== ENCOUNTER → 2023-12-14 | Outpatient (CLI) | payer OTHER, SELFPAY ==
--- OUTSIDE RECORDS SUMMARY | 2023-12-14 14:16 | XMS RPT_ITS ---
Author Name Auto Generated Organization OHIP PROBLEMS No Problem Records Found PROCEDURES No Procedure Records Found RESULTS PROGRESS Observed: 03/13/2023 5:14 PM Status: COMPLETED Source: [facility] REPOSITORY HNO ID: [id number] Author: Annabella Tariq APRN.CEMENT MASON Service: ? Author Type: Nurse Practitioner Type: [...] Observed: 03/13/2023 5:00 PM Status: COMPLETED Source: [facility] REPOSITORY Office Visit (WSTR) KADEEM LEAL ([id number]) 1970 F Date Time Provider Department 03/13/23 [...] analgesia. - Discussed expected course of illness nAnabella Tariq APRN.TIERRA Avoiding Tick Bites How can [...] feet Problems with short-term memory Annabella Tariq APRN.[facility] 03/13/2023 5:24 PM Signed Subjective HPI Kadeem Ried is a 52 year old female who [...] Discussed expected course of illness Annabella Tariq APRN.[facility] [facility] Referring Provider: SELF [200] Allergies As of [...] Discussed expected course of illness Annabella Aguirre-RADHA Matt.[employer] [facility] Avoiding Tick Bites How can I avoid [...] for Encounter Date Provider Department Center 03/13/2023 [id number], KA*[facility] Encounter Status:Closed by ANNABELLA TARIQ on 03/13/23 ALLERGIES DATE TYPE / CODE NAME / CODE REACTION SEVERITY SOURCE 08/06/2006 DRUG/190754378( SNOMED CT) ERYTHROMYCIN [facility] 08/06/2006 Drug Class/290639320 (SNOMED CT) PENICILLINS [facility] 08/06/2006 Drug Class/156512490 (SNOMED CT) SULFA (SULFONAMIDE ANTIBIOTICS) [facility] ENCOUNTERS ADMIT/DISCHARGE ACCOUNT NUMBER ADMITTING ENCOUNTER CLASS LOC ATION SOURCE 03/13/2023/ 3 [id number] [facility] PAYERS ENCOUNTER GUARANTOR PAYER SUBSCRIBER SOURCE 03/13/2023 Primary Insuranc e:O SUPERMED PPOPolicy Number: [id number] Date:1815-45-47Rxud Name:Keyona MONDRAGONFOFRANCKDOB: [id number] [address]
[2023-12-14 17:28] LABS: 24Hr.Lytes Total Volume 1750 mL; Sodium 24 HR UR 136 mmol/24h (40-220); Urine Chloride 124 mmol/L (Not Establ.); Urine Chloride / 24 Hours 217 mmol/24h (110-250); Urine Sodium 78 mmol/L (Not Establ.)
== END | disposition home or self-care (01) ==
LOC: LABSPEC 13:13
PROVIDERS: PCP Family Medicine; Referring Provider Family Medicine; Visit Provider Family Medicine
DX: E87.6 Hypokalemia (principal)
CPT/HCPCS: 81050; 82436; 84133; 84300

== ENCOUNTER → 2024-02-23 | Outpatient (CLI) | payer OTHER, SELFPAY ==
[2024-02-23 13:41] LABS: Anion Gap 5 (5-15); BUN 10 mg/dL (7-18); BUN/Creat Ratio 12.8 RATIO (10-20); Calcium,Total 9.6 mg/dL (8.5-10.1); Chloride 107 mmol/L (98-107); Creatinine, Serum 0.78 mg/dL (0.55-1.02); EST Glomerular Filtration Rate 81 mL/min (>60); Est Glom Filt Rate - Afr Amer 99 mL/min (>60); Glucose 101 mg/dL (74-106); Magnesium 2.2 mg/dL (1.6-2.6); Potassium 3.5 mmol/L (3.5-5.1); Sodium Level 140 mmol/L (136-145)
== END | disposition home or self-care (01) ==
LOC: POLAB3 11:56
PROVIDERS: PCP Family Medicine; Visit Provider Internal Medicine Nephrology
DX: E87.6 Hypokalemia (principal)
CPT/HCPCS: 36415; 80048; 82088; 83735; 84244

== ENCOUNTER → 2024-03-23 | Outpatient (CLI) | payer OTHER, SELFPAY ==
[2024-03-23 18:23] LABS: Anion Gap 7 (5-15); BUN 13 mg/dL (7-18); BUN/Creat Ratio 14.4 RATIO (10-20); Calcium,Total 9.2 mg/dL (8.5-10.1); Chloride 107 mmol/L (98-107); EST Glomerular Filtration Rate 69 mL/min (>60); Est Glom Filt Rate - Afr Amer 84 mL/min (>60); Glucose 109 mg/dL (74-106); Potassium 3.5 mmol/L (3.5-5.1); Sodium Level 140 mmol/L (136-145)
== END | disposition home or self-care (01) ==
LOC: MTLAB 15:17
PROVIDERS: PCP Family Medicine; Referring Provider Internal Medicine Nephrology; Visit Provider Internal Medicine Nephrology
DX: E87.6 Hypokalemia (principal)
CPT/HCPCS: 36415; 80048

== ENCOUNTER → 2024-07-18 | Outpatient (CLI) | payer OTHER, SELFPAY ==
[2024-07-18 18:23] LABS: Anion Gap 7 (5-15); BUN 15 mg/dL (7-18); BUN/Creat Ratio 12.8 RATIO (10-20); Calcium,Total 9.4 mg/dL (8.5-10.1); Chloride 109 mmol/L (98-107); Creatinine, Serum 1.17 mg/dL (0.55-1.02); EST Glomerular Filtration Rate 51 mL/min (>60); Est Glom Filt Rate - Afr Amer 62 mL/min (>60); Glucose 97 mg/dL (74-106); Potassium 3.4 mmol/L (3.5-5.1); Sodium Level 142 mmol/L (136-145)
== END | disposition home or self-care (01) ==
PROVIDERS: PCP Family Medicine; Referring Provider Internal Medicine Nephrology; Visit Provider Internal Medicine Nephrology
DX: E87.6 Hypokalemia (principal)
CPT/HCPCS: 36415; 80048; 83735

== ENCOUNTER → 2024-12-06 | Outpatient (CLI) | payer OTHER, SELFPAY ==
[2024-12-06 12:49] LABS: Anion Gap 6 (5-15); BUN 16 mg/dL (7-18); Calcium,Total 9.5 mg/dL (8.5-10.1); Chloride 109 mmol/L (98-107); Cholesterol 176 mg/dL (200); Creatinine, Serum 0.84 mg/dL (0.55-1.02); EST Glomerular Filtration Rate 75 mL/min (>60); Est Glom Filt Rate - Afr Amer 91 mL/min (>60); Glucose 97 mg/dL (74-106); High Density Lipoprotein 43 mg/dL; Potassium 3.6 mmol/L (3.5-5.1); Sodium Level 142 mmol/L (136-145); Thyroid Stim Hormone (TSH) 0.567 uIU/mL (0.358-3.740); Triglycerides 80 mg/dL; Very Low Density Lipoprotein 16 mg/dL (5-40)
== END | disposition home or self-care (01) ==
LOC: MTLAB 09:40
PROVIDERS: PCP Family Medicine; Referring Provider Family Medicine; Visit Provider Family Medicine
DX: I10 Essential (primary) hypertension (principal); Z13.29 Encounter for screening for other suspected endocrine disorder
CPT/HCPCS: 36415; 80048; 80061; 84443